=== PATIENT | female | born 1955 | race Caucasian/White ===

== ENCOUNTER 2020-08-15 03:40 | Emergency (ER) | payer OTHER ==
[~2020-08-15] VITALS: Ht 165.1 cm; Wt 101.0 kg
[2020-08-15] MEDS ORDERED: ONDANSETRON 2MG/ML, 2ML ONE (03:59)
[2020-08-15] MEDS ORDERED: MORPHINE SULFATE 4 MG/ML, 1ML ONE (03:59)
[2020-08-15] MEDS ORDERED: MORPHINE SULFATE 4 MG/ML, 1ML IVPush PRN (04:00)
[2020-08-15] MEDS ORDERED: ONDANSETRON 2MG/ML, 2ML IVPush ONE (04:00)
[2020-08-15 04:19] LABS: BASOPHILS % (AUTO) 0 % (0-1); EOSINOPHILS % (AUTO) 0 % (1-7); LYMPHOCYTES % (AUTO) 7 % (22-44); MEAN CORPUSCULAR HGB CONC 33.3 g/dL (32.4-35.8); MEAN PLATELET VOLUME 8.7 fL (7.4-10.4); MONOCYTES % (AUTO) 3 % (2-9); NEUTROPHILS % (AUTO) 90 % (42-75); PLATELET COUNT 369 x10^3/uL (130-400); RED BLOOD COUNT 4.76 x10^6/uL (3.82-5.3); RED CELL DISTRIBUTION WIDTH 15.5 % (9.6-15.2)
[2020-08-15 04:29] LABS: ALANINE AMINOTRANSFERASE 28 U/L (12-78); ALBUMIN 3.6 g/dL (3.4-5.0); ANION GAP 6 mmol/L (5-15); CALCIUM 9.3 mg/dL (8.5-10.1); CHLORIDE 107 mmol/L (98-107); CREATININE 1.25 mg/dL (0.55-1.02)
[2020-08-15 04:31] LABS: ALKALINE PHOSPHATASE 72 U/L (45-117); BILIRUBIN,TOTAL 0.4 mg/dL (0.2-1.0); TOTAL PROTEIN 7.9 g/dL (6.4-8.2)
--- NOTE | 2020-08-15 05:24 | NUR ---
Patient came in with compalints of right sided abdominal pain, states that it just came on all of a sudden. Patient denies history of kideny stones. Provider at bedside, IV established and medicated per MAR
[2020-08-15 05:39] LABS: MICROSCOPIC AUTO
[2020-08-15 05:43] LABS: MD SCAN
[2020-08-15 06:05] VITALS: BP 157/83
== END 2020-08-15 06:08 | disposition home or self-care (01) ==
LOC: ED 06:00
DX: N13.2 Hydronephrosis with renal and ureteral calculous obstruction (principal); R10.31 Right lower quadrant pain; R11.2 Nausea with vomiting, unspecified
CPT/HCPCS: 36415; 74176; 80053; 81001; 83690; 85025; 87086; 96374; 96375; 99284; J2270; J2405